=== PATIENT | female | born 1960 | race Caucasian/White ===

== ENCOUNTER → 2024-03-26 | Day surgery (SDC) | payer OTHER ==
[~2024-03-26] MED LIST: ALLEGRA ALLERGY60 MG PO; AMBIEN10 MG PO; AMITRIPTYLINE H25 MG PO; DEXAMETHASONE SOD PHOS INJ 4 MG/ML SDV ONE; EPHEDRINE SULFATE INJ 50 MG/ML VIAL ONE; EPINEPHRINE HCL 1:1000 1ML 1 MG/ML AMP ONE; FENTANYL CITRATE/PF 100MCG/2 ML INJ ONE; GLYCOPYRROLATE INJ 0.2 MG/ML VIAL ONE; KETOROLAC TROMETHAMINE 30 MG/ML VIAL ONE; LEVOTHYROXINE50 MCG PO; LEXAPRO20 MG PO; LIDOCAINE 1% W/EPINEPHRINE 20 ML VIAL ONE; LIDOCAINE HCL 2% LOCAL INJ 5 ML SDV VIAL INJ ONE; LINZESS145 MCG PO; MIDAZOLAM HCL 2 MG/2 ML VIAL ONE; MUPIROCIN 2% OINT 22 GM TUBE ONE; NEOSTIGMINE 1 MG/ML 10ML VIAL ONE; ONDANSETRON HCL INJ 2MG/ML 2ML 2 MG/ML VIAL ONE; PANTOPRAZOLE SO40 MG PO; PHENYLEPHRINE HCL 1% 10 MG/ML VIAL ONE; PROPOFOL IV EMULSION 10 MG/ML 20 ML VIAL ONE; ROCURONIUM BROMIDE 10 MG/ML 5ML VIAL IV ONE; ROSUVASTATIN CAL5 MG PO; SCOPOLAMINE 1 MG PATCH ONE; SEVOFLURANE INHAL SOLN 250 ML PEN BTL ONE; SINGULAIR10 MG PO; TRAZODONE HCL100 MG PO
[2024-03-26] MEDS: LACTATED RINGER'S 1,000 ML ONE (06:28)
[2024-03-26 10:10] VITALS: BP 137/69; PULSE 87; RESP 16; O2SAT 99
== END | disposition home or self-care (01) ==
LOC: OR 05:29
PROVIDERS: ATTEND Otolaryngology Otolaryngology/Facial Plastic Surgery
DX: J32.2 Chronic ethmoidal sinusitis (principal); J32.3 Chronic sphenoidal sinusitis; J32.0 Chronic maxillary sinusitis; J34.89 Other specified disorders of nose and nasal sinuses; I10 Essential (primary) hypertension; E78.5 Hyperlipidemia, unspecified; F32.A Depression, unspecified; K21.9 Gastro-esophageal reflux disease without esophagitis; E11.9 Type 2 diabetes mellitus without complications; E03.9 Hypothyroidism, unspecified; E66.01 Morbid (severe) obesity due to excess calories; Z79.899 Other long term (current) drug therapy
CPT/HCPCS: 31255; 31259; 88304; 93005; J0171; J7121; 88305; J1100; J1885; J2001; J2250; J2371; J2405; J2710